=== PATIENT | female | born 1955 | race Caucasian/White ===

== ENCOUNTER → 2024-05-23 | Outpatient (CLI) | payer OTHER, SELFPAY ==
[2024-05-23 09:31] LABS: Basophils % (Auto) 1 % (0-2.5); Eosinophils # (Auto) 0.2 Thou/mm3 (0.0-0.5); Eosinophils % (Auto) 4 % (0-10); Hematocrit 40.6 % (36.0-46.0); Hemoglobin 13.4 g/dL (12.0-16.0); Immature Granulocytes % (Auto) 0 % (0-0); Immature Granulocytes Auto 0.01 Thou/mm3 (0.00-0.00); Lymphocytes # (Auto) 1.9 Thou/mm3 (1.0-4.8); Lymphocytes % (Auto) 35 % (10-50); Mean Corpuscular Hemoglobin 28.9 pg (25.0-35.0); Mean Corpuscular Volume 88 fL (80-100); Monocytes # (Auto) 0.4 Thou/mm3 (0.0-0.8); Monocytes % (Auto) 8 % (0-12); Neutrophils # (Auto) 2.8 Thou/mm3 (1.8-7.7); Neutrophils % (Auto) 52 % (37-80); Nucleated Red Blood Cell % 0 /100 WBC (0); Platelet Count 285 Thou/mm3 (140-440); RDW Standard Deviation 45.3 fL (36.4-46.3); Red Blood Count 4.64 Miln/mm3 (4.00-5.20); White Blood Count 5.5 Thou/mm3 (3.6-11.0)
[2024-05-23 09:42] LABS: Glucose Estimated Average 123 mg/dL (80-131); Hemoglobin A1C 5.9 % Hgb (4.8-6.0)
[2024-05-23 09:56] LABS: Alanine Aminotransferase 24 U/L (10-49); Albumin, Serum 4.1 gm/dL (3.4-4.8); Albumin/Globulin Ratio 1.6 (1.2-2.2); Alkaline Phosphatase 88 U/L (46-116); Anion Gap 7 (7-16); Aspartate Amino Transferase 16 U/L (0-34); BUN/Creatinine Ratio 16 Ratio (12-20); Bilirubin,Total 0.3 mg/dL (0.3-1.2); Blood Urea Nitrogen 13 mg/dL (9-23); Calcium 10.4 mg/dL (8.3-10.6); Calcium (Corrected) 10.4 mg/dL (8.5-10.1); Cardiac Risk Estimate 5.4 RATIO (3.7-5.6); Chloride 105 mMol/L (98-107); Cholesterol 215 mg/dL (132-200); Creatinine (Component) 0.8 mg/dL (0.6-1.3); Globulin 2.5 gm/dL (2.3-3.5); Glucose 100 mg/dL (74-106); HDL Cholesterol 40 mg/dL (40-60); LDL Cholesterol,Calculated 139 mg/dL (0-130); Osmolality,Calculated 279 (275-295); Potassium 4.2 mMol/L (3.4-5.1); Sodium 140 mMol/L (136-145); Total Protein 6.6 gm/dL (5.7-8.2); Triglycerides 182 mg/dL (30-150); eGFR > 60 See Note
== END | disposition home or self-care (01) ==
LOC: COPL 08:49
PROVIDERS: PCP Internal Medicine; Referring Provider Internal Medicine; Visit Provider Internal Medicine
DX: E78.5 Hyperlipidemia, unspecified (principal); R73.03 Prediabetes
CPT/HCPCS: 36415; 80053; 80061; 83036; 85025

== ENCOUNTER → 2024-07-06 | Outpatient (CLI) | payer OTHER, SELFPAY ==
[2024-07-06 14:16] LABS: Collection Type, Urine Clean Catch
[2024-07-06 15:18] LABS: Bilirubin,Urine Negative (Negative); Blood,Urine 3+ (Negative); Color,Urine Yellow (Lt Yel-Yel); Glucose, Urine Negative (Negative); Ketones,Urine Negative (Negative); Leukocyte Esterase,Urine Positive (Negative); Nitrite,Urine Negative (Negative); PH,Urine 5.5 (5.0-7.0); Protein,Urine 1+ (Neg - Trace); RBC,Urine 210 /hpf (0-3); Specific Gravity,Urine 1.022 (1.001-1.035); Squamous Epithelial Cell,Urine 8 /hpf (0-5); Urobilinogen,Urine Negative mg/dL (0.0-1.0); WBC,Urine 479 /hpf (0-5)
[2024-07-06 15:53] LABS: Clarity,Urine Hazy (Clear/Hazy)
== END | disposition home or self-care (01) ==
LOC: SLDO 14:11
PROVIDERS: Referring Provider Student in an Organized Health Care Education/Training Program; Visit Provider Student in an Organized Health Care Education/Training Program
DX: N39.0 Urinary tract infection, site not specified (principal)
CPT/HCPCS: 81001; 87077; 87086; 87186

== ENCOUNTER → 2024-08-06 | Outpatient (CLI) | payer OTHER, SELFPAY | END | disposition home or self-care (01) | LOC: SLDO 14:33 | PROVIDERS: Referring Provider Student in an Organized Health Care Education/Training Program; Visit Provider Student in an Organized Health Care Education/Training Program | DX: N39.0 Urinary tract infection, site not specified (principal) | CPT/HCPCS: 87086 ==

== ENCOUNTER → 2024-08-08 | Outpatient (CLI) | payer OTHER, SELFPAY ==
--- NOTE | 2024-08-08 | XR_ITS ---
Examination: Right knee 4 views TECHNIQUE: AP oblique lateral axial right knee 4 views Date and time: August 08, 2024 1310 hours INDICATIONS: Worsening knee pain post meniscus surgery 5 years ago. FINDINGS: Moderate to advanced tricompartment osteoarthritis, most prominent medial patellofemoral joints No fracture no patellar dislocation IMPRESSION: Moderate to advanced tricompartment osteoarthritis
--- NOTE | 2024-08-08 12:00 | XR_ITS ---
Examination: Bone densitometry Date and time of exam:August 08, 2024 1257 hours INDICATIONS: Hysterectomy age 26, personal history osteopenia Technique: Lumbar spine and hip total bone mineralization values of an calculated. Peak reference and age match control results have been displayed. Findings: Lumbar spine total bone mineralization is0.908 gm/cm2. This is 1.3 standard deviations below peak reference. This is 0.9 standard deviations above age-matched controls. Hip total bone mineralization is 0.917 gm/cm2 This is 0.2 standard deviations below peak reference. This is 1.4 standard deviations above age-matched controls Impression: There is osteopenia based on lumbar spine measurements. There is osteopenia based on hip measurements Lumbar mineralization is decreased 1.7% compared with June 30, 2022 Hip mineralization is increased 2.8% compared with June 30, 2022
--- NOTE | 2024-08-08 12:30 | XR_ITS ---
Examination: Abdomen sonogram, complete Date and time of exam: August 08, 2024 1211 hours INDICATIONS: Right lobe 15 mm liver cyst on ultrasound July 05, 2023. Technique: Multiple real-time grayscale transabdominal sonographic images of the abdomen have been obtained. Findings: Absent gallbladder Common bile duct 0.5 cm Pancreatic head 3.2 cm Aorta not enlarged Right lobe liver cyst 18 x 14 x 16 mm Normal hepatopedal portal venous flow Patent IVC Right kidney 10.2 cm cortex 1.5 cm Left kidney 9.7 cm cortex 2.0 cm Spleen 7.6 cm IMPRESSION: Small benign right lobe liver cyst
--- NOTE | 2024-08-08 13:00 | XR_ITS ---
Examination: Screening digital mammography, bilateral Computer aided detection 3-D breast Tomosynthesis, bilateral Date and time of exam: August 08, 2024 1229 hours Compared to mammograms dating to April 05, 2019 Indication: Screening Technique: Nonmagnified MLO, CC views of the breasts to been obtained, reconstructed from 3-D Tomosynthesis images. R2 computer aided detection program utilized for evaluation of suspicious masses and/or abnormal calcifications. 3-D Tomosynthesis images obtained. Findings: Scattered areas of fibroglandular density. Benign calcifications. No interval suspicious masses Impression: BI-RADS category II: Benign Findings. Recommend 1 year follow-up mammogram.
== END | disposition home or self-care (01) ==
PROVIDERS: PCP Internal Medicine; Referring Provider Internal Medicine; Visit Provider Internal Medicine
DX: Z12.31 Encounter for screening mammogram for malignant neoplasm of breast (principal); M85.88 Other specified disorders of bone density and structure, other site; K76.89 Other specified diseases of liver; M17.11 Unilateral primary osteoarthritis, right knee; R92.323 Mammographic fibroglandular density, bilateral breasts; R92.1 Mammographic calcification found on diagnostic imaging of breast
CPT/HCPCS: 73564; 76700; 77063; 77067; 77080

== ENCOUNTER 2024-10-05 13:09 | Outpatient (AMB) | payer OTHER, SELFPAY ==
--- NOTE | 2024-10-05 13:33 | PD.ORTHCLVIS ---
Vital signs 10/05/24 13:34 Height 1.63 m Height Method Measured Weight 90.01 kg Weight Measurement Method Standing Scale BMI 34.0 BP 128/73 Blood Pressure Source Automatic Cuff Blood Pressure Location Left Upper Arm Position Sitting Respiration 20 Pulse 112 H Pulse Source Monitor Temp 97.2 F Temp Source Temporal Artery Scan Pulse Oximetry (%) 95 Oxygen Delivery Method Room Air Med/Allergies Allergies & Medications Allergies adhesive tape Allergy (Mild, Verified 10/05/24 13:36) BLISTER SKIN aspirin Allergy (Mild, Verified 10/05/24 13:36) IRRITATES STOMACH Medication Reconciliation metformin 500 mg tablet (Glucophage) 500 mg PO QDAY PCOS #0 tabs 11/22/13 [History Confirmed 10/05/24] omeprazole 20 mg capsule,delayed release (Prilosec) 20 mg PO QDAY GE ##0 11/22/13 [History Confirmed 10/05/24] Exam Exam Breathing is nonlabored. Patient has a normal mood and affect. Bilateral extremities were evaluated and demonstrates sensation intact to light touch. Palpable pedal pulses are present. No significant edema is present. Bilateral hips were examined. The patient has no pain with log roll of the hips. Internal rotation to 30 degrees and external rotation to 30 degrees is painless. Negative FADIR. Left knee was examined today. The left knee is in reasonable alignment. Range of motion from 0-120 degrees. Knee is stable to varus and valgus as well as AP translation with <5mm. Patient has a negative McMurrays. There is no pain with patellofemoral compression and no crepitus noted. The knee is nontender to palpation. The right knee was also examined. The right knee is in varus alignment. Range of motion from 0-115 degrees. Knee is stable to varus and valgus as well as AP translation with <5mm. Patient has a negative McMurrays. There is no pain with patellofemoral compression and no crepitus noted. The knee is tender to palpation medially. Nonweightbearing x-rays demonstrates moderate arthritis of the right knee Assessment and Plan Problem List (1) Arthritis of knee, right: Status: Acute Plan: Patient is a pleasant 69-year-old female with right knee pain and right knee arthritis. We discussed different treatment options. I would like to see the severity of her arthritis. We will possibly either do injections at the next visit or surgery. She is not interested in any anti-inflammatories We will see her back after her x-rays Advanced Care Planning Discussion Advance care planning discussed with:: patient Office Procedures GNS Level of Care Nursing/Assessment Patient Status: Initial/New Patient Nursing Assessment/Reassesment: Medication Reconciliation, Orthostatic Vitals, Update PMH in EMR and Vital Signs Coordination of Care: Complex Care and Chronic Disease 1-5, Education Complex Pt/Fam, Consent,records obtained, informed consent, Results/Orders obtained and Staff clarify orders New Patient Charge New Patient Point Assignment: [id number] New Patient Point Charge: HOME ECONOMICS TEACHER Level 3 ([id number]) MA Intake Visit Data Collection New Patient or Established: New Patient (never been to [facility]) Reason for Visit:: RIGHT KNEE PAIN Seen by Clinical Staff ONLY (RN/MA): No Ekg Manager Required: No PCP or OBGYN visit in last 3 months: Yes Hx Now: No Do You Feel Safe at Home: Yes Authorities Contacted: N/A Questionairres Past Medical History Past Medical History Have you ever been diagnosed with any of the following: Neurological Problems Seizures: No Cardiology Problems Hypercholesterolemia: Yes Congestive Heart Failure: No Hypertension: Yes (BOARDER LINE HTN) Respiratory Problems Chronic Obstructive Pulmonary Disease (COPD): No Asthma: No Bronchitis: No Stomache/Intestinal Problems Gall Bladder Disease: Yes ( , 2013 HAD IT REMOVED ) Gastroesophageal Reflux Disease: Yes Genital/Urinary Problems Renal Disease: No Reproductive Problems Breast Cancer: No Previous Pregnancies: No Musculoskeletal Problems Osteoporosis: Yes Scoliosis: Yes Fractures: Yes (left ankle surgery with screws) Head,Eye,Nose,Throat Problems Cataracts: Yes (BILATERAL) Eye Prosthesis: No Endocrine Problems Diabetes Mellitus Type 1: No Diabetes Mellitus Type 2: Yes (TAKES METFORMIN DAILY SINCE 2011) Blood Problems Anemia: Yes Psychologic Problems Depression: No Anxiety: No Other Problems Falls: No Blood Transfusions: Yes Blood Transfusion Reaction: No Anesthesia Reactions: No Chicken Pox: Yes Measles: Yes Cancer: No Surgical History Hysterectomy: Yes (vaginal hysterectomy) Subjective Visit Visit for: new patient and knee Immunization / Flu Flu Vaccine in the Last 12 Months: Yes Flu Vaccine Exclusion Criteria: Already Received History of Present Illness Chief complaint: RIGHT KNEE PAIN Date of injury / onset of symptoms: 12 YEARS AGO Patient is a pleasant 69-year-old female with right knee pain. She has a history of arthroscopic 12 years ago. She has had viscosupplementation in the past. She has not had any cortisone. She did has not had any weightbearing x-rays. She does not take any medication because upsets her stomach. The pain is starting to affect her and its primary on the medial aspect of her knee Personal History Occupation: RETIRED Red flag PMH: none BMI Counceling provided: Yes Pain Pain level (0-10): 2 Pain location: inside (medial) and anterior Pain quality: aching Pain timing: stairs Associated signs & symptoms: none Ambulatory data Ambulatory device: none Treatments Number of previous injections: 0 Improvement with previous injections: No Number of Physical Therapy sessions: 0 Improvement with PT: No Improvement with NSAIDS: no (PT STATES SHE HAS STOMACH ISSUES) Review of Systems Review of Systems: All systems negative unless otherwise noted in HPI.
[2024-10-05 13:34] VITALS: BP 128/73; PULSE 112; RESP 20; TEMP 36.2; O2SAT 95; BMI 34.0
--- NOTE | 2024-10-05 13:45 | XR_ITS ---
Examination: Bilateral AP knees single view Right knee PA lateral axial 3 views TECHNIQUE: Bilateral AP upright knees single view Right knee PA upright, upright lateral, axial right knee 3 views total 4 views Date and time: October 05, 2024 1402 hours INDICATIONS: Diagnosis unilateral right knee osteoarthritis right knee pain 12 years. FINDINGS: Severe narrowing medial joint space right knee, [id number] Significant osteoarthritis right patellofemoral joint Prominent osteopenia. Small knee effusion Mild to moderate narrowing medial joint space left knee IMPRESSION: Severe narrowing medial joint space right knee, [id number] Significant osteoarthritis right patellofemoral joint
== END 2024-10-05 13:46 | disposition home or self-care (01) ==
PROVIDERS: PCP Internal Medicine; Referring Provider Internal Medicine; Supervising Provider Orthopaedic Surgery Adult Reconstructive Orthopaedic Surgery; Visit Provider Orthopaedic Surgery Adult Reconstructive Orthopaedic Surgery
DX: M17.11 Unilateral primary osteoarthritis, right knee (principal); M25.561 Pain in right knee; I10 Essential (primary) hypertension; E78.00 Pure hypercholesterolemia, unspecified; K21.9 Gastro-esophageal reflux disease without esophagitis; E11.9 Type 2 diabetes mellitus without complications
CPT/HCPCS: 73564; 99203; G0463

== ENCOUNTER 2024-10-16 15:16 | Outpatient (AMB) | payer OTHER, SELFPAY ==
[2024-10-16 15:25] VITALS: BP 111/69; PULSE 97; RESP 19; TEMP 36.3; O2SAT 100; BMI 34.0
--- NOTE | 2024-10-16 15:25 | PD.ORTHCLVIS ---
Vital signs 10/16/24 15:25 Height 1.63 m Height Method Stated Weight 90.322 kg Weight Measurement Method Standing Scale BMI 34.0 BP 111/69 Blood Pressure Source Automatic Cuff Blood Pressure Location Right Upper Arm Position Sitting Respiration 19 Pulse 97 Pulse Source Monitor Temp 97.4 F Temp Source Temporal Artery Scan Pulse Oximetry (%) 100 Oxygen Delivery Method Room Air Med/Allergies Allergies & Medications Allergies adhesive tape Allergy (Mild, Verified 10/16/24 15:26) BLISTER SKIN aspirin Allergy (Mild, Verified 10/16/24 15:26) IRRITATES STOMACH Medication Reconciliation metformin 500 mg tablet (Glucophage) 500 mg PO QDAY PCOS #0 tabs 11/22/13 [History Confirmed 10/16/24] omeprazole 20 mg capsule,delayed release (Prilosec) 20 mg PO QDAY GE ##0 11/22/13 [History Confirmed 10/16/24] Exam Exam Breathing is nonlabored. Patient has a normal mood and affect. Bilateral extremities were evaluated and demonstrates sensation intact to light touch. Palpable pedal pulses are present. No significant edema is present. Bilateral hips were examined. The patient has no pain with log roll of the hips. Internal rotation to 30 degrees and external rotation to 30 degrees is painless. Negative FADIR. Left knee was examined today. The left knee is in reasonable alignment. Range of motion from 0-120 degrees. Knee is stable to varus and valgus as well as AP translation with <5mm. Patient has a negative McMurrays. There is no pain with patellofemoral compression and no crepitus noted. The knee is nontender to palpation. The right knee was also examined. The right knee is in varus alignment. Range of motion from 0-115 degrees. Knee is stable to varus and valgus as well as AP translation with <5mm. Patient has a negative McMurrays. There is no pain with patellofemoral compression and no crepitus noted. The knee is tender to palpation medially. Nonweightbearing x-rays demonstrates moderate arthritis of the right knee Assessment and Plan Problem List (1) Arthritis of knee, right: Status: Acute Plan: Patient is a pleasant 69-year-old female with right knee pain and right knee arthritis. We discussed different treatment options. She has significant arthritis. Recommend knee cortisone injection as patient would like to proceed with conservative treatment at this time. The risks and benefits of the procedure were reviewed with the patient and patient gave verbal consent to continue with the procedure. Procedure: performed by Dr. Roca Using sterile technique the Right knee was thoroughly prepped with alcohol, and approximately 1 cc of Depo-Medrol 80mg/mL and 4 cc of 0.2% ropivacaine was injected without resistance into the medial tibial femoral joint space. The patient tolerated the procedure. Advanced Care Planning Discussion Advance care planning discussed with:: patient Office Procedures GNS Level of Care Nursing/Assessment Patient Status: Established Patient Nursing Assessment/Reassesment: Medication Reconciliation, Update PMH in EMR and Vital Signs Coordination of Care: Complex Care and Chronic Disease 1-5, Education Complex Pt/Fam, Consent,records obtained, informed consent, Results/Orders obtained and Staff clarify orders Established Patient Charge Established Patient Point Assignment: 95 Established Patient Point Charge: EP Level 3 (80-115) Surgical Proc/IM SQ injection Major Surgical Procedure: Yes (KNEE INJECTION) Medication Given Medication Given Medication Given: Yes Documented Dose Given: 1 Route: Infiitration Medication Given Medication Given Medication Given: Yes Documented Dose Given: 4 Route: Infiitration Office Meds methylprednisolone acetate 80 mg/mL suspension for injection Performing Provider: Awais Roca MD Performing Location: [facility] Administered by: Awais Roca MD on 10/16/24 15:40 Dose Route Admin Location Dispensed Lot Number Expiration Date [facility] Hobbing Machine Operator 80 mg intra-articular 1 mL [id number] 03/15/26 3361-4131-17 [id number] ropivacaine (PF) 2 mg/mL (0.2 %) injection solution Performing Provider: Awais Roca MD Performing Location: [facility] Administered by: Awais Roca MD on 10/16/24 15:40 Dose Route Admin Location Dispensed Lot Number Expiration Date [facility] Hobbing Machine Operator 20 mL Infiltration 20 mL [id number] 03/15/27 18346-473-62 [facility] Intake Visit Data Collection New Patient or Established: Established Patient (seen at [facility] within 3 years) Reason for Visit:: F/U XRAYS Seen by Clinical Staff ONLY (RN/MA): No Verbal consent obtained for Telemed visit?: No Sales Support Specialist Required: No PCP or OBGYN visit in last 3 months: Yes Hx Now: No Do You Feel Safe at Home: Yes Authorities Contacted: N/A Questionairres Past Medical History Past Medical History Have you ever been diagnosed with any of the following: Neurological Problems Seizures: No Cardiology Problems Hypercholesterolemia: Yes Congestive Heart Failure: No Hypertension: Yes (BOARDER LINE HTN) Respiratory Problems Chronic Obstructive Pulmonary Disease (COPD): No Asthma: No Bronchitis: No Stomache/Intestinal Problems Gall Bladder Disease: Yes ( HX, 2013 HAD IT REMOVED ) Gastroesophageal Reflux Disease: Yes Genital/Urinary Problems Renal Disease: No Reproductive Problems Breast Cancer: No Previous Pregnancies: No Musculoskeletal Problems Osteoporosis: Yes Scoliosis: Yes Fractures: Yes (left ankle surgery with screws) Head,Eye,Nose,Throat Problems Cataracts: Yes (BILATERAL) Eye Prosthesis: No Endocrine Problems Diabetes Mellitus Type 1: No Diabetes Mellitus Type 2: Yes (TAKES METFORMIN DAILY SINCE 2011) Blood Problems Anemia: Yes Psychologic Problems Depression: No Anxiety: No Other Problems Falls: No Blood Transfusions: Yes Blood Transfusion Reaction: No Anesthesia Reactions: No Chicken Pox: Yes Measles: Yes Cancer: No Surgical History Hysterectomy: Yes (vaginal hysterectomy) Subjective Visit Visit for: follow up visit, knee and x-rays Immunization / Flu Flu Vaccine in the Last 12 Months: No Flu Vaccine Exclusion Criteria: No Exclusion Criteria History of Present Illness Chief complaint: F/U XRAYS Date of injury / onset of symptoms: 12 YEARS AGO Patient is a pleasant 69-year-old female with right knee pain. She has a history of arthroscopic 12 years ago. She has had viscosupplementation in the past. She has not had any cortisone. She did has not had any weightbearing x-rays. She does not take any medication because upsets her stomach. The pain is starting to affect her and its primary on the medial aspect of her knee Personal History Occupation: RETIRED Red flag PMH: BMI BMI Counceling provided: Yes Pain Pain level (0-10): 0 Pain duration: JUST BOTHERSOME Pain location: inside (medial) and anterior Pain quality: aching Pain timing: stairs Associated signs & symptoms: none Ambulatory data Ambulatory device: none Treatments Number of previous injections: 0 Improvement with previous injections: No Number of Physical Therapy sessions: 0 Improvement with PT: No Improvement with NSAIDS: no Review of Systems Review of Systems: All systems negative unless otherwise noted in HPI.
== END 2024-10-16 15:46 | disposition home or self-care (01) ==
PROVIDERS: PCP Internal Medicine; Referring Provider Internal Medicine; Supervising Provider Orthopaedic Surgery Adult Reconstructive Orthopaedic Surgery; Visit Provider Orthopaedic Surgery Adult Reconstructive Orthopaedic Surgery
DX: M17.11 Unilateral primary osteoarthritis, right knee (principal); M25.561 Pain in right knee; I10 Essential (primary) hypertension; E78.00 Pure hypercholesterolemia, unspecified; K21.9 Gastro-esophageal reflux disease without esophagitis; E11.9 Type 2 diabetes mellitus without complications
CPT/HCPCS: 20610; 99213; J1010; J2795; G0463

== ENCOUNTER 2025-01-15 14:30 | Outpatient (AMB) | payer OTHER, SELFPAY ==
--- NOTE | 2025-01-15 14:39 | ORTHONT_ITS ---
Vital signs 01/15/25 14:42 Height 1.63 m Height Method Measured Weight 86.721 kg Weight Measurement Method Standing Scale BMI 32.6 BP 123/76 Blood Pressure Source Automatic Cuff Blood Pressure Location Left Upper Arm Position Sitting Respiration 16 Pulse 100 Pulse Source Monitor Temp 97.3 F Temp Source Temporal Artery Scan Pulse Oximetry (%) 96 Oxygen Delivery Method Room Air Med/Allergies Allergies & Medications Allergies adhesive tape Allergy (Mild, Verified 01/15/25 14:43) BLISTER SKIN aspirin Allergy (Mild, Verified 01/15/25 14:43) IRRITATES STOMACH Medication Reconciliation metformin 500 mg tablet (Glucophage) 500 mg PO QDAY PCOS #0 tabs 11/22/13 [History Confirmed 01/15/25] omeprazole 20 mg capsule,delayed release (Prilosec) 20 mg PO QDAY GE ##0 11/22/13 [History Confirmed 01/15/25] Exam Exam Breathing is nonlabored. Patient has a normal mood and affect. Bilateral extremities were evaluated and demonstrates sensation intact to light touch. Palpable pedal pulses are present. No significant edema is present. Bilateral hips were examined. The patient has no pain with log roll of the hips. Internal rotation to 30 degrees and external rotation to 30 degrees is painless. Negative FADIR. Left knee was examined today. The left knee is in reasonable alignment. Range of motion from 0-120 degrees. Knee is stable to varus and valgus as well as AP translation with <5mm. Patient has a negative McMurrays. There is no pain with patellofemoral compression and no crepitus noted. The knee is nontender to palpa tion. The right knee was also examined. The right knee is in varus alignment. Range of motion from 0-115 degrees. Knee is stable to varus and valgus as well as AP translation with <5mm. Patient has a negative McMurrays. There is no pain with patellofemoral compression and no crepitus noted. The knee is tender to palpation medially. Weight bearing xrays demosntrate severe arthritis medially Assessment and Plan Problem List (1) Arthritis of knee, right: Status: Acute Plan: Patient is a pleasant 70-year-old female with right knee pain and right knee arthritis. We discussed different treatment options. She has significant arthritis. Recommend knee cortisone injection as patient would like to proceed with conservative treatment at this time. The risks and benefits of the procedure were reviewed with the patient and patient gave verbal consent to continue with the procedure. Procedure: performed by Dr. Roca Using sterile technique the Right knee was thoroughly prepped with alcohol, and approximately 1 cc of Depo-Medrol 80mg/mL and 4 cc of 0.2% ropivacaine was injected without resistance into the medial tibial femoral joint space. The patient tolerated the procedure. Advanced Care Planning Discussion Advance care planning discussed with:: patient Office Procedures GNS Level of Care Nursing/Assessment Patient Status: Established Patient Nursing Assessment/Reassesment: Medication Reconciliation, Update PMH in EMR and Vital Signs Coordination of Care: Complex Care and Chronic Disease 1-5, Education Complex Pt/Fam, Consent,records obtained, informed consent, Results/Orders obtained and Staff clarify orders Established Patient Charge Established Patient Point Assignment: 95 Established Patient Point Charge: EP Level 3 (80-115) Surgical Proc/IM SQ injection Minor Surgical Procedure: Yes (KNEE INJECTION) Medication Given Medication Given Medication Given: Yes Documented Dose Given: 1 Route: Infiitration Medication Given Medication Given Medication Given: Yes Documented Dose Given: 4 Route: Infiitration Office Meds methylprednisolone acetate 80 mg/mL suspension for injection Performing Provider: Awais Roca MD Performing Location: [facility] Administered by: Awais Roca MD on 01/15/25 14:46 Dose Route Admin Location Dispensed Lot Number Expiration Date Pack age [facility] Deep Fryer Assembler 80 mg intra-articular KNEE 1 mL [id number] 09/13/26 [address]-5 [id number] [employer] ropivacaine (PF) 2 mg/mL (0.2 %) injection solution Performing Provider: Awais Roca MD Performing Location: [facility] Administered by: Awais Roca MD on 01/15/25 14:46 Dose Route Admin Location Dispensed Lot Number Expiration Date Pack age [facility] Deep Fryer Assembler 20 mL Infiltration KNEE 20 mL [id number] 03/16/27 67754-390-41 [id number] [facility] Intake Visit Data Collection New Patient or Established: Established Patient (seen at [facility] within 3 years) Reason for Visit:: 3 MONTH F/U RT KNEE INJECTION Seen by Clinical Staff ONLY (RN/MA): No Operation Specialist Required: No PCP or OBGYN visit in last 3 months: Yes Hx Now: No Do You Feel Safe at Home: Yes Authorities Contacted: N/A Questionairres Past Medical History Past Medical History Have you ever been diagnosed with any of the following: Neurological Problems Seizures: No Cardiology Problems Hypercholesterolemia: Yes Congestive Heart Failure: No Hypertension: Yes (BOARDER LINE HTN) Respiratory Problems Chronic Obstructive Pulmonary Disease (COPD): No Asthma: No Bronchitis: No Stomache/Intestinal Problems Gall Bladder Disease: Yes ( HX, 2013 HAD IT REMOVED ) Gastroesophageal Reflux Disease: Yes Genital/Urinary Problems Renal Disease: No Reproductive Problems Breast Cancer: No Previous Pregnancies: No Musculoskeletal Problems Osteoporosis: Yes Scoliosis: Yes Fractures: Yes (left ankle surgery with screws) Head,Eye,Nose,Throat Problems Cataracts: Yes (BILATERAL) Eye Prosthesis: No Endocrine Problems Diabetes Mellitus Type 1: No Diabetes Mellitus Type 2: Yes (TAKES METFORMIN DAILY SINCE 2011) Blood Problems Anemia: Yes Psychologic Problems Depression: No Anxiety: No Other Problems Falls: No Blood Transfusions: Yes Blood Transfusion Reaction: No Anesthesia Reactions: No Chicken Pox: Yes Measles: Yes Cancer: No Surgical History Hysterectomy: Yes (vaginal hysterectomy) Subjective Visit Visit for: follow up visit, knee and x-rays Immunization / Flu Flu Vaccine in the Last 12 Months: No Flu Vaccine Exclusion Criteria: No Exclusion Criteria History of Present Illness Chief complaint: F/U XRAYS Date of injury / onset of symptoms: 12 YEARS AGO Patient is a pleasant 69-year-old female with right knee pain. She has a history of arthroscopic 12 years ago. She has had viscosupplementation in the past. She had one cortisone injection and received over 3 months of relief and wants another injection Personal History Occupation: RETIRED Red flag PMH: BMI BMI Counceling provided: Yes Pain Pain level (0-10): 0 Pain duration: JUST BOTHERSOME Pain location: inside (medial) and anterior Pain quality: aching Pain timing: stairs Associated signs & symptoms: none Ambulatory data Ambulatory device: none Treatments Number of previous injections: 0 Improvement with previous injections: No Number of Physical Therapy sessions: 0 Improvement with PT: No Improvement with NSAIDS: no Review of Systems Review of Systems: All systems negative unless otherwise noted in HPI.
[2025-01-15 14:42] VITALS: BP 123/76; PULSE 100; RESP 16; TEMP 36.3; O2SAT 96; BMI 32.6
== END 2025-01-15 14:49 | disposition home or self-care (01) ==
LOC: HODSRG 14:30
PROVIDERS: PCP Internal Medicine; Referring Provider Internal Medicine; Supervising Provider Orthopaedic Surgery Adult Reconstructive Orthopaedic Surgery; Visit Provider Orthopaedic Surgery Adult Reconstructive Orthopaedic Surgery
DX: M17.11 Unilateral primary osteoarthritis, right knee (principal); M25.561 Pain in right knee; E11.9 Type 2 diabetes mellitus without complications; Z79.84 Long term (current) use of oral hypoglycemic drugs
CPT/HCPCS: 20610; 99213; J1010; J2795; G0463